=== PATIENT | female | born 1965 | race Two or more races ===

== ENCOUNTER 2016-08-11 15:38 | Emergency (ER) | payer MEDICAID ==
[~2016-08-11] VITALS: Ht 162.6 cm; Wt 48.5 kg
[2016-08-11 15:41] VITALS: BP 124/66
[2016-08-11] MEDS ORDERED: IBUPROFEN 600 MG TABLET PO ONE (16:12)
[2016-08-11] MEDS ORDERED: TDAP [DIPH/PERTUSSIS/TET] 0.5 ML VIAL IM ONE (16:12)
[2016-08-11] MEDS: IBUPROFEN 600 MG TABLET PO ONE (16:19)
[2016-08-11] MEDS: TDAP [DIPH/PERTUSSIS/TET] 0.5 ML VIAL IM ONE (16:20)
== END 2016-08-11 17:29 | disposition home or self-care (01) ==
LOC: ER 15:40
DX: S70.01XA Contusion of right hip, initial encounter (principal); S90.512A Abrasion, left ankle, initial encounter; V19.9XXA Pedal cyclist (driver) (passenger) injured in unspecified traffic accident, initial encounter; Y93.89 Activity, other specified; Y92.413 State road as the place of occurrence of the external cause; Y99.8 Other external cause status
CPT/HCPCS: 73510-TC; 73610-TC; 90715; A4606; A6402; Z7610